=== PATIENT | female | born 1980 | race African-American/Black ===

== ENCOUNTER 2017-03-30 12:02 | Emergency (ER) | payer MEDICAID ==
[~2017-03-30] VITALS: Ht 165.1 cm; Wt 120.0 kg
[~2017-03-30 12:02] MED LIST: METR-1 PO; NAPR500T2 PO
[2017-03-30 12:03] VITALS: BP 173/85; PULSE 82; RESP 14; TEMP 98.1; O2SAT 98
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
== END 2017-03-30 13:41 | disposition left against medical advice (07) ==
LOC: NEPD 12:02
DX: M54.6 Pain in thoracic spine (principal); M53.84 Other specified dorsopathies, thoracic region; M43.6 Torticollis; F17.200 Nicotine dependence, unspecified, uncomplicated
CPT/HCPCS: 99281